=== PATIENT | male | born 1975 | race African-American/Black ===

== ENCOUNTER 2018-08-22 06:59 | Emergency (ER) | payer BC, OTHER ==
[~2018-08-22] VITALS: Ht 177.8 cm; Wt 73.0 kg
[2018-08-22] MEDS ORDERED: KETOROLAC 60MG/2ML VIAL IM STA (09:10)
[2018-08-22 09:48] VITALS: BP 121/81
== END 2018-08-22 09:48 | disposition home or self-care (01) ==
LOC: ER 06:59
DX: L03.115 Cellulitis of right lower limb (principal); G35 Multiple sclerosis; F17.210 Nicotine dependence, cigarettes, uncomplicated
CPT/HCPCS: 96372; 99283; J1885

== ENCOUNTER 2018-08-31 06:28 | Inpatient (IN) | payer BC ==
[~2018-08-31] VITALS: Ht 177.8 cm; Wt 72.6 kg
[2018-08-31] MEDS ORDERED: HYDROCODONE/ACETAMINOPHEN 5/325MG TABLET PO ONE (08:30)
[2018-08-31 11:11] LABS: BASOPHILS % 0.8 % (0.0-2.0); EOSINOPHILS % 0.7 % (0.0-5.0); HEMATOCRIT. 39.6 % (42.0-52.0); HEMOGLOBIN. 12.9 g/dL (14.0-18.0); LYMPHOCYTES % 20.1 % (20.0-50.0); MEAN CORPUSCULAR HEMOGLOBIN 26.7 pg (28.0-32.0); MEAN CORPUSCULAR VOLUME 81.8 fL (80.0-94.0); MEAN PLATELET VOLUME 7.5 fl (7.4-10.4); MONOCYTES % 12.5 % (2.0-8.0); NEUTROPHILS % 65.9 % (40.0-76.0); PLATELET 324 x1000/uL (130-400); RED BLOOD CELL COUNT 4.84 mill/uL (4.7-6.1); RED CELL DISTRIBUTION WIDTH 13.6 % (11.6-14.6)
[2018-08-31 11:14] LABS: CHLORIDE 104 mEq/L (98-107)
[2018-08-31 11:15] LABS: PROTHROMBIN TIME 9.9 sec (9.1-11.1)
[2018-08-31 11:29] LABS: CREATINE KINASE MB FRACTION < 1.0 ng/mL (0.5-3.6)
[2018-08-31] MEDS ORDERED: ACETAMINOPHEN 325MG TABLET PO PRN (15:00)
[2018-08-31] MEDS ORDERED: TEMAZEPAM 15MG CAPSULE PO PRN (15:00)
[2018-08-31] MEDS ORDERED: MAGNESIUM HYDROXIDE 400MG/5ML 30ML UDC PO PRN (15:00)
[2018-08-31] MEDS ORDERED: MAGNESIUM/ALUMINUM HYDROXIDE/SIMETHICONE 30ML UDC PO PRN (15:00)
[2018-08-31] MEDS ORDERED: METHYLPREDNISOLONE SOD SUCC 125 MG/2 ML VIAL IV NR (15:00)
[2018-08-31] MEDS ORDERED: DIPHENHYDRAMINE 50MG/ML VIAL IV PRN (15:00)
[2018-08-31 15:28] LABS: CREATINE KINASE 141 IU/L (39-308)
[2018-08-31 15:34] VITALS: BP 133/65
[2018-08-31] MEDS: HYDROCODONE/ACETAMINOPHEN 5/325MG TABLET PO PRN ×2 (16:27→20:19)
[2018-08-31] MEDS ORDERED: INTE30PE3 IM (16:31)
[2018-08-31] MEDS ORDERED: CEFAZOLIN 1000MG PREMIX 50 ML IV SCH (18:15)
[2018-08-31 18:55] LABS: *BENZODIAZEPINES SCREEN URINE NEGATIVE (NEGATIVE); *COCAINE SCREEN URINE NEGATIVE (NEGATIVE); METHADONE URINE SCREEN NEGATIVE (NEGATIVE); OPIATES URINE SCREEN PRESUMTIVE POSITIVE (NEGATIVE); PHENCYCLIDINE URINE SCREEN NEGATIVE (NEGATIVE)
[2018-08-31 18:56] LABS: *AMPHETAMINES SCREEN URINE NEGATIVE (NEGATIVE); *BARBITURATES SCREEN URINE NEGATIVE (NEGATIVE); CANNABINOID URINE SCREEN PRESUMTIVE POSITIVE (NEGATIVE)
[2018-08-31 20:00] VITALS: BP_SYST 125; BP_SYST 137; BP_DIAS 76; BP_DIAS 81
[2018-08-31] MEDS: CEFAZOLIN 1000MG PREMIX 50 ML IV SCH (22:18)
[2018-08-31] MEDS: SODIUM CHLORIDE 0.9% INJ 3ML FLUSH IVF SCH (22:23)
[2018-09-01] VITALS: BP 137/76
[2018-09-01] MEDS: HYDROCODONE/ACETAMINOPHEN 5/325MG TABLET PO PRN ×2 (03:46→09:16)
[2018-09-01 04:00] VITALS: BP 121/74
[2018-09-01] MEDS: CEFAZOLIN 1000MG PREMIX 50 ML IV SCH (06:12)
[2018-09-01] MEDS: SODIUM CHLORIDE 0.9% INJ 3ML FLUSH IVF SCH ×2 (06:20→14:00)
[2018-09-01 07:40] LABS: BASOPHILS % 0.3 % (0.0-2.0); HEMATOCRIT. 38.9 % (42.0-52.0); HEMOGLOBIN. 12.6 g/dL (14.0-18.0); LYMPHOCYTES % 18.1 % (20.0-50.0); MEAN CORPUSCULAR HEMOGLOBIN 26.2 pg (28.0-32.0); MEAN CORPUSCULAR VOLUME 80.9 fL (80.0-94.0); MEAN PLATELET VOLUME 7.6 fl (7.4-10.4); MONOCYTES % 8.4 % (2.0-8.0); NEUTROPHILS % 73.2 % (40.0-76.0); PLATELET 320 x1000/uL (130-400); RED BLOOD CELL COUNT 4.81 mill/uL (4.7-6.1); RED CELL DISTRIBUTION WIDTH 13.7 % (11.6-14.6)
[2018-09-01 08:00] VITALS: BP 116/70
[2018-09-01 08:01] LABS: CHLORIDE 103 mEq/L (98-107)
[2018-09-01 12:25] VITALS: BP 134/74
[2018-09-01] MEDS ORDERED: METHYLPREDNISOLONE SOD SUCC 125 MG/2 ML VIAL IV SCH (14:00)
[2018-09-01 16:00] VITALS: BP 126/87
[2018-09-01] MEDS ORDERED: FAMOTIDINE 20MG TABLET PO SCH (21:00)
== END 2018-09-01 16:15 | disposition home or self-care (01) | DRG 556 ==
LOC: ER 06:28 → 6EST 11:33 → ENRESERV 12:49 → 6EST 15:22
PROVIDERS: ADMIT Internal Medicine; ATTEND Internal Medicine
DX: M60.851 Other myositis, right thigh (principal); F12.90 Cannabis use, unspecified, uncomplicated; G35 Multiple sclerosis; S70.11XA Contusion of right thigh, initial encounter; X58.XXXA Exposure to other specified factors, initial encounter; Y93.89 Activity, other specified; Y92.89 Other specified places as the place of occurrence of the external cause; Y99.8 Other external cause status; Z72.0 Tobacco use; Z82.0 Family history of epilepsy and other diseases of the nervous system
CPT/HCPCS: 36415; 73552; 73562; 73718; 76881; 80048; 80305; 82085; 82550; 82553; 83615; 83735; 85651; 96374; 97162; 99285; J0690; J1200; J2930; J7040